=== PATIENT | female | born 1955 | race Caucasian/White ===

== ENCOUNTER → 2016-05-16 | Outpatient (CLI) | payer OTHER ==
[~2016-05-16] MED LIST: AMIODARONE 200200 MG PO; CELEBREX 200MG200 MG PO; CHLORTHALIDONE25 MG PO; CYMBALTA60 MG PO; EFFEXOR75 MG PO; LEVAQUIN500 MG PO; LEVOTHYROXINE0.05 M2 PO; LOSARTAN POTASS50 MG PO; MELOXICAM15 MG PO; POTASSIUM CHLO10 ME3 PO; PRILOSEC20 M1 PO; REQUIP0.25 MG PO; TENORETIC 50 T1 EACH PO; TRAZODONE 50MG50 MG PO; UNITHROID0.088 MG PO; XARELTO20 MG PO; [UNRECOGNIZED DRUG - OTHER] PO
== END ==
LOC: LAB 07:53
DX: I48.91 Unspecified atrial fibrillation (principal)

== ENCOUNTER → 2017-03-19 | Outpatient (CLI) | payer OTHER ==
[2017-03-19 10:06] LABS: HEMOGLOBIN 14.6 g/dL (12.2-16.2); LYMPH # 2.3 K/mm3 (0.7-4.5); LYMPH % 19.8 % (10-50.0)
[2017-03-19 11:09] LABS: BUN 16 mg/dL (7-18); GFR (ESTIMATED) 73 ML/MIN (59-)
== END ==
LOC: LAB 09:11
PROVIDERS: Nurse Practitioner Obstetrics & Gynecology
DX: N84.0 Polyp of corpus uteri (principal); N95.0 Postmenopausal bleeding; Z01.818 Encounter for other preprocedural examination

== ENCOUNTER 2017-03-23 06:06 | Day surgery (SDC) | payer OTHER ==
[~2017-03-23] VITALS: Ht 165.1 cm; Wt 104.3 kg
--- NOTE | 2017-03-23 08:12 | Operative Note ---
Procedure/Operative Record Procedure Date of procedure: 03/23/17 Pre-Op Dx: Postmenopausal bleeding, endometrial polyp Post-Op Dx: Postoperative possible bleeding, endometrial polyp, submucous fibroid Procedure performed: Hysteroscopy, endometrial polypectomy, myomectomy Surgeon: Dr. Harley Rosado Senior Software Quality Engineer(s): None Anesthesia: Dilshad Watson EBL (ml): 50 Clinical note: She is a 61-year-old lady who had postmenopausal bleeding. An endometrial biopsy showed that she had a piece of polyp at the time of biopsy. As result of that she was offered hysteroscopy, D and C and polypectomy. Operative findings: She had a couple of small 1 cm polyps at the LEFT side of the fundus of the uterus near the tubal ostia. There was also a posterior submucous fibroid approximately 2 cm in size at the junction of the internal os and cervical canal. Operative note: She was taken the operating room where LMA anesthesia was found be adequate. She was prepped and draped in normal sterile fashion in the lithotomy position. A weighted speculum was placed in the vagina and the anterior lip of the surfaces grasped with a tenaculum. Harmon dilators used to guide the cervix to approximately 6 mm. A myosure scope was then inserted into the uterine cavity. It was noted that there was a false passage posteriorly and I was able to easily go anteriorly into the uterine cavity. It did not look like the passage went all the way through the myometrium. There were 2 small polyps at the fundus of the uterus near the LEFT tubal ostia and these were removed with her device. When I pulled back on the device was noted that there was a 2 cm fibroid posteriorly there was impinging on the internal cervical os and using the device I was able to shave this off and remove most of this. At the end of the procedure she tolerated procedure well and was taken to the recovery room in excellent condition. All sponge and instrument counts were correct. The estimated blood loss was less than 50 mL. Conplications: Posterior false passage Specimens: Endometrial polyps, submucous fibroid at 0812
--- NOTE | 2017-03-23 08:15 | Anesthesia Record ---
Anesthesia Record Part I Total IV fluids: 600 EBL (ml): 50 Urine Output: 100 B/P: 108/67 % SaO2: 96 Pulse: 89 Resps: 16 Temp: 97.1 Patient is: Stable Stable to PACU at: 0812 at 0815
--- NOTE | 2017-03-23 08:16 | Anesthesia Record ---
Anesthesia Record Part II Discharge time: 841 Destination: Same day surgery PACU nurse assessment review? Yes Patient is: Stable Anesthesia complications? No at 0816
[2017-03-23 09:52] VITALS: BP 104/69
== END 2017-03-23 09:30 | disposition home or self-care (01) ==
LOC: SDC 06:06
PROVIDERS: Nurse Practitioner Obstetrics & Gynecology
PROC: 0UB98ZZ Excision of Uterus, Via Natural or Artificial Opening Endoscopic (ICD-10-PCS; 2017-03-23)
PROC: 0UBC8ZZ Excision of Cervix, Via Natural or Artificial Opening Endoscopic (ICD-10-PCS; principal; 2017-03-23 07:30)
DX: N95.0 Postmenopausal bleeding (principal); N84.0 Polyp of corpus uteri; D25.0 Submucous leiomyoma of uterus
CPT/HCPCS: J0131; J2405; J2704